=== PATIENT | female | born 1980 | race Caucasian/White ===

== ENCOUNTER → 2017-12-16 10:29 | Outpatient (CLI) | payer OTHER, BC, SELFPAY ==
--- NOTE | 2017-12-16 10:38 | MRI_ITS ---
STUDY: MRI BRAIN WITHOUT CONTRAST REASON FOR EXAM: Female, 37 years old. Chronic migraine headaches which are increasing in severity and frequency. TECHNIQUE: Standardized multiplanar fat and water weighted pulse sequences were obtained. COMPARISON: None. FINDINGS: Normal size of the ventricles and extra-axial spaces for the patient's age. Normal white matter tracts of the supratentorial brain. There are no white matter hyperintensities. Specifically, there are no focal areas of white matter gliosis which are occasionally associated with vasospastic migraine headaches. There is no evidence for recent intracranial ischemia or other cause of cytotoxic edema on diffusion weighted imaging (DWI). Normal T2* images of the brain without demonstrated susceptibility artifact. There is no demonstrated hemosiderin stain. Normal bilateral basal ganglia. Normal thalami. There is no extra-axial fluid accumulation. Normal flow voids within the major intracranial circulation suggesting patency by spin echo criteria. Normal sella turcica, pituitary gland, infundibular stalk, optic chiasm and hypothalamus. Normal tectal plate and pineal gland. Normal midbrain, chet and medulla. Normal cerebellum. Normal basal cisterns. Normal bilateral temporal bones. Normal bilateral internal auditory canals. No demonstrated orbital abnormality, within the constraints of a routine brain study. There is a 15 mm retention cyst of the right maxillary sinus. Normal calvarium and skull base. Normal visualized soft tissue structures. Normal visualized upper cervical spine. MRI/Brain without Contrast IMPRESSION: 1. Normal unenhanced MRI of the brain. 2. Retention cyst of the right maxillary sinus. Electronically Signed: Hoang Hill DO at 13:04 EST Tel , Service support ,
== END ==
PROVIDERS: Family Provider Nurse Practitioner Family; PCP Nurse Practitioner Family; Visit Provider Psychiatry & Neurology Neurology
DX: R51 Headache (principal)
CPT/HCPCS: 70551

== ENCOUNTER → 2019-02-22 16:25 | Outpatient (CLI) | payer OTHER, BC, SELFPAY ==
[2019-02-22 14:16] VITALS: BMI 25.4
[2019-02-27 14:46] LABS: HPV APTIMA, High Risk Negative (Negative)
== END ==
PROVIDERS: Referring Provider Nurse Practitioner Women's Health; Visit Provider Nurse Practitioner Women's Health
DX: Z12.4 Encounter for screening for malignant neoplasm of cervix (principal)
CPT/HCPCS: 87624; 88175; G0145

== ENCOUNTER → 2019-04-12 | Outpatient (CLI) | payer OTHER, BC, SELFPAY ==
[2019-02-22 14:16] VITALS: BMI 25.4
--- NOTE | 2019-04-12 08:12 | BI_ITS ---
MAMMOGRAPHY - BILATERAL SCREENING REASON FOR EXAM: Female, 39 years old. Routine annual screening examination. PERTINENT HISTORY: Non-contributory. Prior right excisional breast biopsy. TECHNIQUE: Digital bilateral breast capo (3D mammographic acquisition) in the CC and MLO projections. 2-D mediolateral oblique (MLO) and craniocaudad (CC) views of both breasts were obtained. CAD: Full Field Digital Mammography with Computer Added Detection was performed. COMPARISON: Comparison is made with prior outside examination dated July 23, 2015. FINDINGS: Breast Composition: The breasts are extremely dense, which lowers the sensitivity of mammography. There are no dominant masses or suspicious calcifications. The previously seen nodular density in the deep upper lateral aspect of the right breast as result. No other significant abnormalities are identified. BI/SCREEN MAMM (CAD) W/CAPO BILAT IMPRESSION: Stable bilateral screening mammogram. Yearly follow-up mammogram recommended. (A) ASSESSMENT CATEGORY: BIRADS Category 1: Negative. A letter regarding these results will be sent to the patient by the facility within 30 days. Approximately 10% of breast cancers are not detected by mammography. A normal mammogram should not delay biopsy of a clinically suspicious abnormality. [id number] Electronically Signed: Merritt Guzman, at 14:42 EDT , Service support ,
== END | disposition home or self-care (01) ==
LOC: OPBI 08:10
PROVIDERS: Family Provider Family Medicine; PCP Family Medicine; Referring Provider Nurse Practitioner Women's Health; Visit Provider Nurse Practitioner Women's Health
DX: Z12.31 Encounter for screening mammogram for malignant neoplasm of breast (principal)
CPT/HCPCS: 77063; 77067

== ENCOUNTER → 2019-04-21 08:00 | Outpatient (CLI) | payer OTHER, BC, SELFPAY ==
[2019-04-12 10:19] VITALS: BMI 25.4
--- NOTE | 2019-04-21 08:02 | US_ITS ---
HISTORY:menorrhagia menorrhagia EXAMINATION: US Pelvis Non OB Complete With Transvaginal Imaging TECHNIQUE: Transabdominal and transvaginal pelvic ultrasound was performed. Transvaginal ultrasound was obtained to improve visualization of anatomic structures COMPARISON: None FINDINGS: UTERUS: anteverted The uterus measures 10.3 x 6.8 x 4.5 cm. There is no uterine mass. Nabothian cysts are seen within the cervix The endometrial stripe measures 1 cm in AP diameter which is within normal limits. There is a small amount of fluid seen within the endometrial canal. There is also a afocal area of increased echogenicity within the cervical canal measures 3 x 4 x 3 mm. Consider hysterosonography for further evaluation if clinically indicated this may represent a polyp. RIGHT OVARY: 4.2 x 3.0 x 2.1 cm. Non-enlarged, normal echogenicity. There is vascular flow noted within the right ovary LEFT OVARY: Images of the left ovary were not provided FREE FLUID: None. US/Transvaginal Non- IMPRESSION: The endometrial canal is at the upper limits of normal measuring 1 cm. There is fluid within the endometrial canal as well as a focal soft tissue echogenicity that may represent a polyp. I would hysterosonography for further evaluation if clinically indicated The right ovary appears within normal limits. There is a dominant cyst that measures 1.27 x 1.41 x 1 cm No images of the left ovary were provided on this study. at 2222 Reported and signed by: Juanita Soria DO Electronically Signed: Juanita Soria DO at 22:21 EDT Tel , Service support ,
--- NOTE | 2019-04-21 08:02 | US_ITS ---
HISTORY:menorrhagia menorrhagia EXAMINATION: US Pelvis Non OB Complete With Transvaginal Imaging TECHNIQUE: Transabdominal and transvaginal pelvic ultrasound was performed. Transvaginal ultrasound was obtained to improve visualization of anatomic structures COMPARISON: None FINDINGS: UTERUS: anteverted The uterus measures 10.3 x 6.8 x 4.5 cm. There is no uterine mass. Nabothian cysts are seen within the cervix The endometrial stripe measures 1 cm in AP diameter which is within normal limits. There is a small amount of fluid seen within the endometrial canal. There is also a afocal area of increased echogenicity within the cervical canal measures 3 x 4 x 3 mm. Consider hysterosonography for further evaluation if clinically indicated this may represent a polyp. RIGHT OVARY: 4.2 x 3.0 x 2.1 cm. Non-enlarged, normal echogenicity. There is vascular flow noted within the right ovary LEFT OVARY: Images of the left ovary were not provided FREE FLUID: None. US/Pelvic (Non ) IMPRESSION: The endometrial canal is at the upper limits of normal measuring 1 cm. There is fluid within the endometrial canal as well as a focal soft tissue echogenicity that may represent a polyp. I would hysterosonography for further evaluation if clinically indicated The right ovary appears within normal limits. There is a dominant cyst that measures 1.27 x 1.41 x 1 cm No images of the left ovary were provided on this study. at 2222 Reported and signed by: Juanita Soria DO Electronically Signed: Juanita Soria DO at 22:21 EDT Tel , Service support ,
== END ==
LOC: OPUS 08:00
PROVIDERS: Family Provider Family Medicine; PCP Family Medicine; Referring Provider Nurse Practitioner Women's Health; Visit Provider Nurse Practitioner Women's Health
DX: N92.0 Excessive and frequent menstruation with regular cycle (principal); N94.6 Dysmenorrhea, unspecified
CPT/HCPCS: 76830; 76856

== ENCOUNTER 2019-06-08 11:06 | Day surgery (SDC) | payer OTHER, BC, SELFPAY ==
[2019-04-12 10:19] VITALS: BMI 25.4
[2019-05-30 13:17] VITALS: BMI 25.4
--- NOTE | 2019-06-01 23:46 | PCM.HPOB.BLA ---
- Problem List (1) Endometrial polyp Status: Acute (2) Hypothyroid Status: Acute History and Physical Date of Admission: 06/08/19 Intake Vital Signs 05/30/19 Body Mass Index (BMI) 25.4 05/30/19 Height 5 ft 3 in 05/30/19 Weight: 138 lb 05/30/19 Body Mass Index (BMI) 24.4 05/30/19 Blood Pressure 118/84 H Intake Visit Reasons: pre op Chief Complaint: pre op D&C with symphion Is patient in pain?: No Allergies acetaminophen [From Vicodin] Adverse Reaction (Verified 06/01/19 13:58) Nausea/Vom/Diarrhea hydrocodone [From Vicodin] Adverse Reaction (Verified 06/01/19 13:58) Nausea/Vom/Diarrhea Medications cholecalciferol (vitamin D3) 50,000 unit capsule 50,000 unit PO QWEEK 02/22/19 [History Confirmed 06/01/19] ferrous sulfate 300 mg (60 mg iron) tablet 325 mg PO DAILY tab 02/22/19 [History Confirmed 06/01/19] citalopram 40 mg tablet 40 mg PO DAILY #90 tab 04/12/19 [Rx Confirmed 06/01/19] Sumatriptan Succinate [Imitrex] 100 mg PO .X1 PRN 06/01/19 [History Confirmed 06/01/19] Thyroid,Pork [Electronics Research Engineer Thyroid 120] 60 mg PO DAILY 06/01/19 [History Confirmed 06/01/19] Is last menstrual period known: No Post menopausal: No Patient : No : No PFSH Surgical History H/O tubal ligation (Acute) History of lumpectomy of right breast (Acute) History of tonsillectomy and adenoidectomy (Acute) Social History (Updated 06/01/19 @ 17:59 by Maribel Javier MD) number of children: 3 current occupational status: employed current occupation: Teacher at [employer] Smoking Status: Former smoker alcohol intake: current alcohol intake frequency: holidays/special occasions only substance use type: does not use seatbelt use: always do you feel safe at home: Yes additional social history: Matt [employer] HPI pre op: Details: JUAN ESPAÑA is a 39 year old who presents for preoperative visit. she is having heavy bleeding and has an endometrial polyp that needs removed. Female Reproductive History Menopausal Symptoms: No night sweats Pregancy History 4 Elective abortions Hx Para 4 Spontaneous abortions Hx # Term Pregnancies 4 Ectopic pregnancies Hx # Pregnancies Multiple births # of living children 4 Past Pregnancies Del. Date Name GA/Weeks Outcome Route Bth Weight Gen Labor Lgth Anesthesia Del Locatn Provider FOB Unknown [place] 1993 adopted out Unknown Radhaaby 1999 Unknown Dave 2001 Unknown [email or web address] Delivery Date: On 02/22/19 @ 14:19 Carolynn Johnson adopted out Delivery Date: No notes to display Delivery Date: No notes to display Delivery Date: No notes to display ROS Const Constitutional: Denies fatigue, night sweats, weight gain or weight loss ENT ENT: Reports system reviewed and no additional complaints, except as docu Cardio Card: Denies chest pain Resp Resp: Denies cough or dyspnea GI GI: Reports as per HPI; denies abdominal pain, constipation, nausea or vomiting : Denies nipple discharge, urinary frequency, urinary incontinence, urinary hesitancy, urinary urgency, vaginal discharge, vaginal dryness, vaginal odor or vaginal itching Musc Musc: Denies joint pain, back pain or muscle weakness Skin Skin/Breast: Denies hair loss, change in hair, dry skin, breast lump, breast pain, breast skin changes or nipple discharge Neuro Neuro: Reports system reviewed and no additional complaints, except as docu Psych Psych: Reports system reviewed and no additional complaints, except as docu Endo Endo: Denies cold intolerance, excessive sweating, heat intolerance or increased thirst Fadi/Lymph Hematologic/Lymphatic: Denies easy bleeding, Denies easy bruising, Denies enlarged lymph nodes Exam Const General: cooperative, healthy appearing, comfortable, no acute distress, well developed Orientation: alert [facility] Head: normal to inspection, normocephalic Ears: hearing grossly normal bilaterally, external ears normal Nose: external nose normal, nares normal Face and sinus: normal facial exam Neck Neck: normal visual inspection, no lymphadenopathy Thyroid: thyroid normal Chest Chest palpation & inspection: normal inspection of the chest Resp Effort & Inspection: normal respiratory effort Cardio Rate: regular rate GI Inspection: normal to inspection, non-distended Palpation: soft, no hepatosplenomegaly Musc Other: gross motor intact no deficits, full bilateral strength Skin General: no rashes or lesions noted Neuro General: alert, awake, moves all extremities, no focal motor deficits Motor: muscle tone normal throughout Extrem General: normal to inspection, no pedal edema Psych Appearance: grossly normal Mental Status: mental status grossly normal Affect: normal affect Speech and Movement: speech and movement normal Assessment & Plan Problems 1. Endometrial polyp N84.0 Plan plan d and c hysteroscopy symphion. discussed surgical risks including risks of anesthesia, infection, bleeding, injury to bowel, bladder or blood vessels, and patient wishes to proceed with surgery. Coding Level of Care Code No Charge Diagnoses Endometrial polyp N84.0 UPDATE- I have seen the patient and performed any clinically relevant updates to the history and physical exam. Maribel Javier MD
[2019-06-08] VITALS (7 sets, daily range): BP systolic 104–112; BP diastolic 68–90; PULSE 73–91; RESP 16; TEMP 36.3–37.4; O2SAT 99–100; BMI 24.4
[2019-06-08 12:06] LABS: Hemoglobin 13.1 g/dL (12.0-15.0); Mean Corp Hgb Conc 32.8 g/dL (32-36); Mean Corpuscular Hgb 30.6 pg (27.0-32.0); Mean Corpuscular Volume 93.5 fL (81-99); Mean Platelet Vol. 9.1 fl (6.2-12.0); Platelet Count 286 K/mm3 (150-450); RBC Distribution Width SD 41.5 fl (35.1-43.9); Red Blood Count 4.28 M/mm3 (4.2-5.4)
--- NOTE | 2019-06-08 12:30 | EMB_PTH ---
PATIENT: JUAN ESPAÑA LOC: [facility] – [place] U#:[id number] AGE/SX: 39/F ROOM: RE06/08/[address]: Dr. Maribel Javier MD : 1980 BED: DIS: 06/08/2019 SPEC #: [id number] RECD: 06/08/19 16:00 STATUS: AYALA LUIS #: [id number] KASEY: 06/08/19 12:[address]: Maribel Javier DEPT: SURGICAL PATHOLOGY RECD BY: Herbert Cano ENTERED: 06/09/19 07:52 SP TYPE: ENDOM BX/C OTHR DR: Dr. Ángel Vieira MD Tissues: Endometrium, NOS Procedures: Surgery Specimen Level IV HEADER OPERATION: Hysteroscopy, D & C Symphion PRE-OP DIAGNOSIS: Endometrial polyp TISSUE SUBMITTED: Endometrial curettings MICROSCOPIC DIAGNOSIS Endometrium, curettings: Secretory endometrium. Myometrial fragments suggestive of adenomyosis. AM:jeovanny 06/12/19 MICROSCOPIC DESCRIPTION Slides are reviewed. GROSS DESCRIPTION Received in fixative is one container labeled with the patient's name and designated endometrial curettings. The specimen consists of multiple irregular fragments of light hernandez soft tissue that in aggregate measure 6 x 5 x 0.5 cm. The specimen is submitted in its entirety in three cassettes. / AM:jeovanny 06/09/19 TC:5 CPT: 71043
--- NOTE | 2019-06-08 15:06 | PCM.DC.D&C ---
Discharge Diet: No Restrictions Discharge Activity: Return to Normal Activity, May Shower, May Take a Tub Bath Allergies/Adverse Reactions: Allergies acetaminophen [From Vicodin] Adverse Reaction (Verified 06/08/19 11:17) Nausea/Vom/Diarrhea hydrocodone [From Vicodin] Adverse Reaction (Verified 06/08/19 11:17) Nausea/Vom/Diarrhea Medications to take at Discharge cholecalciferol (vitamin D3) 50,000 unit capsule 50,000 unit PO QWEEK 02/22/19 ferrous sulfate 300 mg (60 mg iron) tablet 325 mg PO DAILY tab 02/22/19 citalopram 40 mg tablet 40 mg PO DAILY #90 tab 04/12/19 Sumatriptan Succinate [Imitrex] 100 mg PO .X1 PRN 06/01/19 Thyroid,Pork [Competitive Intelligence Manager Thyroid 120] 60 mg PO DAILY 06/01/19 Primary Care Physician: Ángel Vieira MD [Primary Care Provider] - Test Results: Test results from this visit will be discussed in further detail at your follow-up appointment, if applicable. Please Follow Up With: Maribel Javier MD - [phone]
--- NOTE | 2019-06-08 15:07 | PCM.OPRPT ---
Problem List (1) Endometrial polyp Status: Acute (2) Hypothyroid Status: Acute Report of Operation Date of Procedure: 06/08/19 Pre-Operative Diagnosis: endometrial polyp aub Post-Operative Diagnosis: same Surgery/Procedure Performed:: D&C hysteroscopy symphion resection Description of Surgical Findings:: Asymmetrical lining with thickened and polypoid appearance to the posterior wall Type of Anesthesia:: Local MAC Special Medications: none Specimen's removed: emc Drains: none Estimated Blood Loss (mL): 25 Fluids Replaced: crystalloid Description of Procedure: Patient was prepped and draped in a normal sterile fashion under MAC anesthesia. A weighted speculum was placed in the vagina and the anterior lip of the cervix was grasped with a single-tooth tenaculum. A paracervical block was placed with 1% lidocaine. Cervix was progressively dilated to allow passage of a 5 mm hysteroscope. The lining was fully visualized and noted to have a polypoid appearance and a very thickened endometrium with asymmetry. Uterine sounded to 8 cm. Using the symphion device, the polypoid appearance to the posterior endometrium and sampling of the entire lining was progressively removed without complications. Direct visual curettage was performed using the device , and all specimens were sent to pathology. All instruments were removed from the vagina and excellent hemostasis was noted. Patient was awoken and taken to recovery in stable condition. Grafts/Implants Used: none - Complications none Multi Select Codes - Urinary/Genital Urinary/Genital CPT Codes: 90392 Hysteroscopy biopsy
== END 2019-06-08 15:52 | disposition home or self-care (01) ==
LOC: SDC 11:06 → AC 11:07
PROVIDERS: Family Provider Family Medicine; PCP Family Medicine; Referring Provider Obstetrics & Gynecology; Visit Provider Obstetrics & Gynecology
PROC: 0UB98ZZ Excision of Uterus, Via Natural or Artificial Opening Endoscopic (ICD-10-PCS; CPT 58558; principal; 2019-06-08 12:15)
DX: N84.0 Polyp of corpus uteri (principal); R93.89 Abnormal findings on diagnostic imaging of other specified body structures; E03.9 Hypothyroidism, unspecified; Z87.891 Personal history of nicotine dependence
CPT/HCPCS: 58558; 36415; 85027; 86850; 86900; 88305; J7120

== ENCOUNTER 2019-10-24 05:34 | Day surgery (SDC) | payer OTHER, BC, SELFPAY ==
[2019-06-30 09:00] VITALS: BMI 24.4
[2019-10-16 10:23] VITALS: BMI 24.4
--- NOTE | 2019-10-23 21:50 | HP.PCM_ITS ---
- Problem List (1) Adenomyosis Status: Acute Comment: plan [facility] BS, plan same day surgery (2) Endometrial polyp Status: Acute (3) Hypothyroid Status: Acute History and Physical Date of Admission: 10/24/19 Intake Vital Signs 10/16/19 Body Mass Index (BMI) 24.4 10/16/19 Height 5 ft 3 in 10/16/19 Weight: 142 lb 4 oz 10/16/19 Body Mass Index (BMI) 25.2 10/16/19 Blood Pressure 111/79 Intake Visit Reasons: ERARossi [facility] BS Route Sales Manager Required: No Is patient in pain?: No Allergies acetaminophen [From Vicodin] Adverse Reaction (Verified 10/16/19 10:22) Nausea/Vom/Diarrhea hydrocodone [From Vicodin] Adverse Reaction (Verified 10/16/19 10:22) Nausea/Vom/Diarrhea Medications cholecalciferol (vitamin D3) 50,000 unit capsule 50,000 unit PO QWEEK 02/22/19 [History Confirmed 10/16/19] ferrous sulfate 300 mg (60 mg iron) tablet 325 mg PO DAILY tab 02/22/19 [History Confirmed 10/16/19] Sumatriptan Succinate [Imitrex] 100 mg PO .X1 PRN 06/01/19 [History Confirmed 10/16/19] Thyroid,Pork [Traveling Inventory Associate Thyroid 120] 60 mg PO DAILY 06/01/19 [History Confirmed ] citalopram 40 mg tablet 40 mg PO DAILY #90 tab 07/19/19 [Rx Confirmed 10/16/19] metronidazole 500 mg tablet 500 mg PO BID #14 tab 08/01/19 [Rx Confirmed 10/16/19] Post menopausal: No Patient : No : No [facility] Surgical History H/O tubal ligation (Acute) History of lumpectomy of right breast (Acute) History of tonsillectomy and adenoidectomy (Acute) S/P dilation and curettage (Acute ~06/08/19) Social History (Updated 10/16/19 @ 10:54 by Maribel Javier MD) number of children: 3 current occupational status: employed 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 she has adenomyosis and abrnoaml bleeding Pregancy History 4 Elective abortions Hx Para 4 Spontaneous abortions Hx # Term Pregnancies 4 Ectopic pregnancies Hx # Pregnancies Multiple births # of living children 4 Past Pregnancies Del. Date Name GA/Weeks Outcome Route Bth Weight Infant Gen Labor Lgth Anesthesia Del Locatn Provider FOB Unknown Carla 1993 adopted out Unknown Sheaby 1999 Unknown Dave 2001 Unknown Rylin 2008 Delivery Date: On 02/22/19 @ 14:19 Carolynn Johnson adopted out Delivery Date: No notes to display Delivery Date: No notes to display Delivery Date: No notes to display ROS Const Constitutional: Denies fatigue, fever(s), headache(s), increased appetite, poor appetite, weight gain or weight loss ENT ENT: Denies dry mouth Cardio Card: Denies chest pain Resp Resp: Denies cough or dyspnea GI GI: Reports as per HPI; denies abdominal pain, constipation, nausea or vomiting : Reports as per HPI; denies difficulty urinating, painful urination, blood in urine, nipple discharge, pelvic pain, urinary frequency, urinary incontinence, urinary hesitancy, urinary urgency, vaginal discharge, vaginal dryness, vaginal odor, vaginal itching or other Musc Musc: Denies joint pain, back pain or muscle weakness Skin Skin/Breast: Denies nipple discharge Neuro Neuro: Reports system reviewed and no additional complaints, except as docu Psych Psych: Reports system reviewed and no additional complaints, except as docu Endo Endo: Denies cold intolerance, excessive sweating, heat intolerance or increased thirst Fadi/Lymph Hematologic/Lymphatic: Denies easy bleeding, Denies easy bruising, Denies enlarged lymph nodes Exam Const General: cooperative, healthy appearing, comfortable, no acute distress, well developed Nutritional Appearance: average body habitus Orientation: alert [facility] Head: normal to inspection, normocephalic Ears: hearing grossly normal bilaterally, external ears normal Nose: external nose normal, nares normal Face and sinus: normal facial exam Neck Neck: normal visual inspection, no lymphadenopathy, trachea midline Thyroid: thyroid normal Chest Chest palpation & inspection: normal inspection of the chest Resp Effort & Inspection: normal respiratory effort Auscultation: clear to auscultation bilaterally Cardio Rate: regular rate Rhythm: regular rhythm Heart Sounds: S1 normal, S2 normal GI Inspection: normal to inspection, non-distended Palpation: soft, no hepatosplenomegaly General: bladder normal to palpation External Female Exam: normal external appearance, normal appearance of the urethra Urethra: normal appearance of the urethra, normal palpation, no discharge Speculum Exam - Vagina: normal appearance of the vagina, normal vaginal discharge Speculum Exam - Cervix: normal appearance of the cervix, nontender Bimanual Exam- Vagina & Uterus: normal bimanual exam, uterine size normal, bladder normal to palpation, uterine shape normal, No cervical tenderness, uterine mobility normal, uterine consistency normal, normal cervical palpation, uterus non-tender Bimanual Exam- Adnexa, other: normal adnexae, adnexae mobile, no adnexal masses, pelvic support normal Pelvic Support: normal Musc Other: gross motor intact no deficits, full bilateral strength Skin General: no rashes or lesions noted Neuro General: alert, awake, moves all extremities, no focal motor deficits Motor: muscle tone normal throughout Extrem General: normal to inspection, no pedal edema Psych Appearance: grossly normal Mental Status: mental status grossly normal Affect: normal affect Speech and Movement: speech and movement normal Assessment & Plan Problems 1. Adenomyosis N80.0 plan [facility] BS, plan same day surgery Plan After discussing the patient's diagnosis and treatment plan options, patient wishes to proceed with surgical management. I have discussed with the patient the risks, benefits, and alternatives of the procedure which include but are not limited to risks of anesthesia, bleeding, infection, possible damage to bowel, bladder, or surrounding vasculature which could lead to additional surgery to evaluate any complications. Patient agrees to procedure and wishes to proceed. ACOG/uptodate references given for additional information regarding procedure. Coding Level of Care Code No Charge Diagnoses Adenomyosis N80.0 UPDATE- I have seen the patient and performed any clinically relevant updates to the history and physical exam. Maribel Javier MD
[2019-10-24] VITALS (9 sets, daily range): BP systolic 81–108; BP diastolic 42–72; PULSE 58–92; RESP 15–18; TEMP 36.1–36.8; O2SAT 96–100; BMI 25.7
[2019-10-24 06:25] LABS: Hematocrit 40.3 % (37-47); Hemoglobin 13.4 g/dL (12.0-15.0); International Normalized Ratio 1.1; Mean Corp Hgb Conc 33.3 g/dL (32-36); Mean Corpuscular Hgb 30.7 pg (27.0-32.0); Mean Corpuscular Volume 92.2 fL (81-99); Platelet Count 273 K/mm3 (150-450); RBC Distribution Width CV 11.8 % (11.6-14.6); RBC Distribution Width SD 39.9 fl (35.1-43.9); Red Blood Count 4.37 M/mm3 (4.2-5.4); White Blood Count 5.3 K/mm3 (4.4-11.0)
[2019-10-24 06:25] LABS: Bedside Glucose 90 mg/dL (70-110)
[2019-10-24 06:26] LABS: Partial Thromboplast Time 30.9 Seconds (24.1-36.2)
[2019-10-24 06:36] LABS: AST(SGOT) 11 U/L (15-37); Alanine Aminotransfer ALT/SGPT 13 U/L (13-56); Albumin, Serum 3.7 g/dL (3.2-5.0); Alkaline Phosphatase 46 U/L (45-117); Globulin 2.6 g/dL (2.2-4.2); Protein, Total 6.3 g/dL (6.4-8.2)
[2019-10-24] MEDS: dexAMETHasone 10 MG/ML Vial 8 MG IV (06:47)
[2019-10-24] MEDS: Lactated Ringers 1,000 ML 40 ML IV ×2 (06:47→09:32)
[2019-10-24] MEDS: Acetaminophen 500 MG Tablet 1000 MG PO ×2 (06:48→11:53)
[2019-10-24] MEDS: Magnesium Sulfate 4gm/100mL 4 GM/100 ML IV.SOLN. IV (06:48)
[2019-10-24] MEDS: Gabapentin 600 MG Tablet PO (06:49)
[2019-10-24] MEDS: Celecoxib 200 MG Capsule 400 MG PO (06:50)
[2019-10-24] MEDS: Phenazopyridine 95 MG Tablet 190 MG PO (06:50)
[2019-10-24] MEDS: Scopolamine 1mg/72hr Patch 1 PATCH TRANSDERM. (06:50)
[2019-10-24] MEDS: Enoxaparin 40 MG/0.4 ML Syringe SC (06:56)
--- NOTE | 2019-10-24 07:15 | HYST_PTH ---
PATIENT: JUAN ESPAÑA LOC: [facility] [place] U#:[id number] AGE/SX: 39/F ROOM: RE10/24/[address]: Dr. Maribel Javier MD : 1980 BED: DIS: 10/24/2019 SPEC #: [id number] RECD: 10/24/19 09:36 STATUS: AYALA LUIS #: [id number] KASEY: 10/24/19 07:[address]: Maribel Javier DEPT: SURGICAL PATHOLOGY RECD BY: Herbert Cano ENTERED: 10/24/19 11:14 SP TYPE: HYSTERECT OTHR DR: Dr. Ángel Vieira MD Tissues: Uterus, NOS Procedures: Surgery Specimen Level V HEADER OPERATION: Total vaginal hysterectomy, bilateral salpingectomy PRE-OP DIAGNOSIS: Adenomyosis, endometrial polyp TISSUE SUBMITTED: Uterus, cervix and bilateral fallopian tubes MICROSCOPIC DIAGNOSIS Uterus, cervix and bilateral fallopian tubes, vaginal hysterectomy and bilateral salpingectomy: Cervix - chronic cystic cervicitis with tunnel cluster formation and squamous metaplasia. Endometrium - proliferative endometrium. Myometrium - adenomyosis. Bilateral fallopian tubes - no pathologic diagnosis. Paratubal cysts. AYAKA:jeovanny 10/25/19 MICROSCOPIC DESCRIPTION Slides are reviewed. GROSS DESCRIPTION Received in fixative is one container labeled with the patient's name and designated uterus. The specimen consists of a uterus with attached cervix and two detached fallopian tubes. The uterus with cervix measures 10 x 5 x 4 cm and weighs 134 gm. The ectocervix is grossly unremarkable. The cervical os is oval in contour. A Filshie clip is present in the right cornu and is closed and intact. The endocervical canal measures 4 cm in length and is grossly unremarkable. The triangular endometrial cavity measures 4 x 3.3 cm. The velvety, hernandez endometrium measures up to 0.2 cm in thickness. The myometrium measures 2 cm in average thickness and is free of mass lesions. The right and left fallopian tubes are similar in appearance with average lengths of 4 cm and average diameters of 0.5 cm. One fallopian tube reveals two glistening cysts containing clear fluid ranging in size from 1 to 1.5 cm present adjacent to the fimbriated end. Stabber sections are submitted in eight cassettes as follows: 1??anterior cervix, 2 - posterior cervix, 3 & 4 - anterior uterine wall, 5 & 6 - posterior uterine wall, 7 - one fallopian tube and ovary, 8 - the other fallopian tube, ovary and paratubal cysts. / AM:jeovanny 10/24/19 TC:5 CPT: 34925
--- NOTE | 2019-10-24 07:15 | PCM.OPRPT ---
Problem List (1) Adenomyosis Status: Acute Comment: plan TVH BS, plan same day surgery (2) Endometrial polyp Status: Acute (3) Hypothyroid Status: Acute Report of Operation Date of Procedure: 10/24/19 Pre-Operative Diagnosis: AUB adenomyosis Post-Operative Diagnosis: same Surgery/Procedure Performed:: tvh bs Description of Surgical Findings:: nl uterus tubes ovaries aerospace physiological technician: Mikey Berg Type of Anesthesia:: General Special Medications: none Specimen's removed: uterus tubes Drains: gee Estimated Blood Loss (mL): 50 Fluids Replaced: crystalloid Description of Procedure: Patient was taken to the operating room and was placed under general anesthesia was prepped and draped in normal sterile fashion in the dorsal lithotomy position. Preoperative antibiotics and SCDs and Gee catheter was placed inside the bladder. Weighted speculum was placed in the vagina and the anterior and posterior lip of the cervix was grasped with 2 Poncho clamps and circumferentially injected with dilute vasopressin. A circumferential incision was made with a scalpel and the posterior cul-de-sac was entered into sharply and a longneck speculum was placed. The anterior cul-de-sac was also dissected down and entered into sharply and the uterosacral ligaments were clamped cut and suture ligated bilaterally followed by the cardinal ligaments which were Clamped cut and suture ligated bilaterally with 0 Monocryl. The uterus serially descended and progressive bites were taken bilaterally up to the level of the utero-ovarian ligament bilaterally which was clamped transected and double ligated with 0 Monocryl suture and 0 Vicryl free tie. Bilateral fallopian tubes and ovaries were well visualized and noted be within normal limits and the bilateral fallopian tubes were transected across the base with a Clarisse clamp and removed and sutured with 0 Vicryl suture. Excellent hemostasis was noted. The vagina was closed with [id number] 0 Vicryl pop offs including the posterior and anterior peritoneum in the reapproximation. Excellent hemostasis was noted. All instruments removed from the vagina clear urine was noted at the end of the procedure and patient was awoken and taken recovery in stable condition. Grafts/Implants Used: none - Complications none - Admit VTE Documentation VTE Present on Admission: No VTE Mechan Device Prophylaxis: SCD's VTE Pharm Prophylaxis ordered?: Yes Multi Select Codes - Urinary/Genital Urinary/Genital CPT Codes: 22152 TVH+BS/O <250gr uterus
[2019-10-24] MEDS: Cefazolin 2 GM in 0.9% Normal Saline 100 ML IV (07:17)
--- NOTE | 2019-10-24 07:18 | PCM.DC.VHY ---
Discharge Diet: No Restrictions Discharge Activity: Return to Normal Activity, May Not Drive, May Shower May resume sexual activity in: 6-8 weeks Call your doctor if your incision/area has: Continuous Slow Oozing, Sudden Increased Bleeding, Increased Pain/ Swelling, Increased Redness, Foul Smelling Discharge Call your doctor if you observe: Fever of 101 or Higher, Inability to urinate, Inability to have a bowel movement, Using more than one pad per hour Allergies/Adverse Reactions: Allergies hydrocodone [From Vicodin] Adverse Reaction (Verified 10/24/19 06:24) Nausea/Vom/Diarrhea Medications to take at Discharge cholecalciferol (vitamin D3) 50,000 unit capsule 50,000 unit PO QWEEK 02/22/19 ferrous sulfate 300 mg (60 mg iron) tablet 325 mg PO DAILY tab 02/22/19 Sumatriptan Succinate [Imitrex] 100 mg PO .X1 PRN 06/01/19 Thyroid,Pork [[employer] Thyroid 120] 60 mg PO DAILY 06/01/19 citalopram 40 mg tablet 40 mg PO DAILY #90 tab 07/19/19 Naproxen [Naprosyn] 250 - 500 mg PO Q8H PRN PRN #30 tab 10/24/19 Oxycodone HCl/Acetaminophen [Percocet 5-325] 1 - 2 tablet PO Q6H PRN PRN 7 Days #28 tablet 10/24/19 The following prescriptions were given: Naproxen [Naprosyn] 250 - 500 mg PO Q8H PRN PRN #30 tab PRN Reason: MILD PAIN Transmission Status: Pending to [facility] Oxycodone HCl/Acetaminophen [Percocet 5-325] 1 - 2 tablet PO Q6H PRN PRN 7 Days #28 tablet PRN Reason: Moderate-Severe pain Transmission Status: Sent to [facility] Primary Care Physician: Ángel Vieira MD [Primary Care Provider] - Test Results: Test results from this visit will be discussed in further detail at your follow-up appointment, if applicable. Please Follow Up With: Maribel Javier MD - [phone]
[2019-10-24] MEDS: Vasopressin 20 UNITS/ML Vial (07:38)
[2019-10-24] MEDS: oxyCODONE 5 MG Tablet PO (10:21)
[2019-10-24] MEDS: Ketorolac 30 MG/ML Syringe IV (10:52)
[2019-10-24 14:12] LABS: Hematocrit 38.4 % (37-47); Hemoglobin 12.6 g/dL (12.0-15.0); Mean Corp Hgb Conc 32.8 g/dL (32-36); Mean Corpuscular Hgb 30.7 pg (27.0-32.0); Mean Corpuscular Volume 93.4 fL (81-99); Mean Platelet Vol. 8.9 fl (6.2-12.0); Platelet Count 270 K/mm3 (150-450); RBC Distribution Width CV 11.5 % (11.6-14.6); RBC Distribution Width SD 39.4 fl (35.1-43.9); Red Blood Count 4.11 M/mm3 (4.2-5.4); White Blood Count 11.2 K/mm3 (4.4-11.0)
== END 2019-10-24 14:53 | disposition home or self-care (01) ==
LOC: SDC 05:34 → AC 05:35
PROVIDERS: Anesthesiology; Family Provider Family Medicine; PCP Family Medicine; Referring Provider Obstetrics & Gynecology; Visit Provider Obstetrics & Gynecology
PROC: (CPT 58260; principal; 2019-10-24 06:55)
DX: N84.0 Polyp of corpus uteri (principal); N72 Inflammatory disease of cervix uteri; N83.8 Other noninflammatory disorders of ovary, fallopian tube and broad ligament; N80.0 Endometriosis of uterus; E03.9 Hypothyroidism, unspecified; Z79.899 Other long term (current) drug therapy; F41.9 Anxiety disorder, unspecified; Z87.891 Personal history of nicotine dependence
CPT/HCPCS: 58262; 36415; 80076; 82962; 85027; 85610; 85730; 86850; 86900; 86901; 88307; J7120; J2405